=== PATIENT | female | born 1970 ===

== ENCOUNTER 2019-06-28 10:21 | Emergency (ER) | payer SELFPAY ==
[2019-06-28] MEDS ORDERED: Bupivacaine 0.25% 10 ML SDV INJECT ONE (10:43)
--- NOTE | 2019-06-28 11:20 | EDM.PDOC ---
ED HPI GENERAL MEDICAL PROBLEM - General Chief Complaint: ENT Problem Stated Complaint: DENTAL PAIN Time Seen by Provider: 06/28/19 10:40 Source of Information: Reports: Patient History Limitations: Reports: No Limitations - History of Present Illness INITIAL COMMENTS - FREE TEXT/NARRATIVE: Dental pain complaint. Developed when part of her back molar lower left side fell off the tooth recently. Now has 10/10 pain. Dentist is in [place] and does not offer coverage on weekends. No fevers/chills. Thought the area looked swollen a bit earlier. OTC meds not helping. No other changes/complaints. Left Lower Tooth/Teeth Pain Score (Numeric/FACES): 10 - Related Data Allergies Allergy/AdvReac Type Severity Reaction Status Date / Time No Known Allergies Allergy Verified 06/28/19 10:29 Home Meds: Home Meds Cephalexin [Keflex] 500 mg PO Q6H #1 capsule 06/28/19 [Rx] Losartan/Hydrochlorothiazide [Losartan-HCTZ 100-25 MG] 1 tab PO DAILY 06/28/19 [ History] Past Medical History Cardiovascular History: Reports: Hypertension Respiratory History: Reports: COPD (suspected based on smoking history) Psychiatric History: Reports: Other (See Below) (Patient reports heavy use of ETOH/6 drinks a day average per self report.) Social & Family History - Tobacco Use Smoking Status *Q: Current Every Day Smoker Packs/Tins Daily: 1.5 - Alcohol Use Alcohol Use History: Yes Days Per Week of Alcohol Use: 7 Number of Drinks Per Day: 6 Total Drinks Per Week: 42 - Recreational Drug Use Recreational Drug Use: No Drug Use in Last 12 Months: No ED ROS GENERAL - Review of Systems Review Of Systems: Comprehensive ROS is negative, except as noted in HPI. ED EXAM, GENERAL - Physical Exam Exam: See Below Exam Limited By: No Limitations General Appearance: Alert, WD/WN, No Apparent Distress Eye Exam: Bilateral Eye: EOMI, PERRL Ears: Normal External Exam Nose: No: Nasal Deformity, Nasal Swelling, Nasal Drainage Throat/Mouth: Normal Lips, Normal Voice, No Airway Compromise, Other (no obvious drainage from gums/swelling noted. Most posterior molar left lower jaw shows outer edge of tooth sheered off. This is the tender tooth. ) Head: Atraumatic, Normocephalic, Facial Tenderness (over left lower jaw). No: Facial Swelling Neck: Normal Inspection, Supple, Non-Tender, Full Range of Motion. No: Lymphadenopathy (L), Lymphadenopathy (R) Respiratory/Chest: No Respiratory Distress, Lungs Clear Extremities: Normal Range of Motion, Normal Capillary Refill Neurological: Alert, Oriented, Normal Cognition, Normal Gait, No Motor/Sensory Deficits Psychiatric: Normal Affect, Normal Mood Skin Exam: Warm, Dry, Intact, Normal Color Course - Vital Signs Last Recorded V/S: Last Vital Signs Temp 36.6 C 06/28/19 10:21 Pulse 98 06/28/19 10:21 Resp 16 06/28/19 10:21 BP 136/78 06/28/19 10:21 Pulse Ox 100 06/28/19 10:21 - Orders/Labs/Meds Meds: Medications Discontinued Medications Generic Name Dose Route Start Last Admin Trade Name Viviana PRN Reason Stop Dose Admin Bupivacaine HCl 10 ml 06/28/19 10:43 06/28/19 11:00 Sensorcaine-Mpf 0.25% INJECT 06/28/19 10:44 4.5 ml ONETIME ONE Administration Lidocaine HCl 5 ml 06/28/19 10:43 06/28/19 11:00 Xylocaine-Mpf 1% INJECT 06/28/19 10:44 0.5 ml ONETIME ONE Administration - Re-Assessments/Exams Free Text/Narrative Re-Assessment/Exam: Patient agreeable with having dental block performed. A mixture of 4.5ml Marcaine was mixed with 0.5ml Lidocaine. A total of 3ml of this solution was injected in two different areas. This was successful in greatly reducing patient's pain level from a 10 down to a 4. She was given Keflex to cover for potential infection in addition to 10 tabs of Tramadol for pain. To follow up with her primary dentist [facility] on Sunday to figure out a plan to deal with the damaged tooth. Patient agreeable with plan. Departure - Departure Time of Disposition: 11:12 Disposition: Home, Self-Care 01 Condition: Good Clinical Impression: Pain, dental - Discharge Information *PRESCRIPTION DRUG MONITORING PROGRAM REVIEWED*: Not Applicable *COPY OF PRESCRIPTION DRUG MONITORING REPORT IN PATIENT MAGALY: Not Applicable Prescriptions: Cephalexin [Keflex] 500 mg PO Q6H #1 capsule Referrals: Alexandra Shen [facility] [Primary Care Provider] - Forms: ED Department Discharge Additional Instructions: Follow up with your dentist as soon as possible. Follow up otherwise as needed.
== END 2019-06-28 11:33 | disposition home or self-care (01) ==
LOC: LL.ED 10:21
DX: K08.89 Other specified disorders of teeth and supporting structures (principal); F17.210 Nicotine dependence, cigarettes, uncomplicated; I10 Essential (primary) hypertension; J44.9 Chronic obstructive pulmonary disease, unspecified; Z79.899 Other long term (current) drug therapy
CPT/HCPCS: 64400; 99282-25; J2001; J3490

== ENCOUNTER 2022-04-01 21:11 | Emergency (ER) | payer SELFPAY | END 2022-04-01 22:00 | disposition home or self-care (01) | LOC: LL.ED 21:11 | DX: K08.89 Other specified disorders of teeth and supporting structures (principal); I10 Essential (primary) hypertension; Z79.899 Other long term (current) drug therapy | CPT/HCPCS: 99282; 99283 ==

== ENCOUNTER 2023-02-20 17:03 | Emergency (ER) | payer SELFPAY ==
[2023-02-20 17:32] LABS: BASOPHILS ABSOLUTE AUTO 0.02 K/uL (0.00-0.20); BASOPHILS PERCENT AUTO 0.6 % (0.0-2.0); EOSINOPHILS ABSOLUTE AUTO 0.12 K/uL (0.00-0.50); EOSINOPHILS PERCENT AUTO 3.9 % (0.0-5.0); HEMOGLOBIN 12.3 g/dL (11.7-15.5); LYMPHOCYTES ABSOLUTE AUTO 1.14 K/uL (0.50-3.50); LYMPHOCYTES PERCENT AUTO 36.7 % (10.0-50.0); MEAN CORPUSCULAR HEMOGLOBIN 32.4 pg (28.2-33.3); MEAN CORPUSCULAR HGB CONC 35.1 g/dL (31.7-36.0); MEAN CORPUSCULAR VOLUME 92.1 fL (84.0-98.0); MONOCYTES ABSOLUTE AUTO 0.37 K/uL (0.00-1.00); MONOCYTES PERCENT AUTO 11.9 % (2.0-14.0); NEUTROPHILS ABSOLUTE AUTO 1.46 K/uL (1.40-7.00); NEUTROPHILS PERCENT AUTO 46.9 % (45.0-80.0); PLATELET COUNT,PLT 269 K/uL (150-350); RED CELL DISTRIBUTION WIDTH 12.7 % (11.2-14.1); WHITE BLOOD CELL COUNT,WBC 3.1 K/uL (4.0-10.2)
[2023-02-20 17:35] LABS: APPEARANCE,URINE CLEAR; BILIRUBIN,URINE NEGATIVE (NEGATIVE); COLOR,URINE YELLOW; GLUCOSE,URINE NEGATIVE (NEGATIVE); KETONES,URINE NEGATIVE (NEGATIVE); LEUKOCYTE ESTERASE,URINE NEGATIVE (NEGATIVE); NITRITE,URINE NEGATIVE (NEGATIVE); OCCULT BLOOD,URINE MODERATE (NEGATIVE); PH,URINE 6.5 (5.0-9.0); PROTEIN,URINE NEGATIVE (NEGATIVE); UROBILINOGEN,URINE 0.2 E.U./dL (0.2-1.0)
[2023-02-20 17:37] LABS: BACTERIA,URINE NOT SEEN /HPF (NONE TO FEW); EPITHELIAL CELLS,URINE OCCASIONAL /LPF; MUCUS,URINE NOT SEEN /LPF (NEGATIVE); RBC,URINE 0-5 /HPF; WBC,URINE 0-5 /HPF
[2023-02-20 17:51] LABS: ALANINE AMINOTRANSFERASE,ALT 13 U/L (12-78); ALBUMIN 3.7 g/dL (3.4-5.0); ALKALINE PHOSPHATASE 43 IU/L (46-116); ANION GAP 14.4 meq/L (7-15); ASPARTATE AMNIOTRANSFERASE,AST 20 U/L (15-37); BILIRUBIN TOTAL 0.2 mg/dL (0.2-1.0); BLOOD UREA NITROGEN,BUN 12 mg/dL (7-18); CALCIUM 8.5 mg/dL (8.5-10.1); CARBON DIOXIDE,CO2 27.3 mmol/L (21.0-32.0); CHLORIDE,CL 97 mmol/L (98-107); CREATININE 0.81 mg/dL (0.51-1.17); ESTIMATED GFR 88 mL/min (>=60); GLUCOSE RANDOM 92 mg/dL (70-99); POTASSIUM,K 3.7 mmol/L (3.5-5.1); PROTEIN TOTAL,TP 6.7 g/dL (6.4-8.2); SODIUM,NA 135 mmol/L (136-145)
[2023-02-20] MEDS: Take Home: Nitrofurantoin Monohydrate/Macrocrystalline 100 MG, 6 Cap Pack PO ONE (18:22)
[2023-02-20] MEDS: Take Home: Phenazopyridine 95 MG Tab, 4 Tab Pack PO ONE (18:23)
[2023-02-22 15:52] LABS: C.TRACHOMATIS BY TMA Negative (Negative); N.GONORRHOEAE BY TMA Negative (Negative); SOURCE URINE
== END 2023-02-20 18:25 | disposition home or self-care (01) ==
LOC: LL.ED 17:03 → SUPCPDRO 17:03 → LL.ED 18:25
DX: R39.15 Urgency of urination (principal); F17.210 Nicotine dependence, cigarettes, uncomplicated; I10 Essential (primary) hypertension; J44.9 Chronic obstructive pulmonary disease, unspecified
CPT/HCPCS: 36415; 80053; 81001; 85025; 87491; 87591; 99283; 99284; A9270-GY

== ENCOUNTER 2024-11-13 21:38 | Emergency (ER) | payer SELFPAY ==
[2024-11-13 22:10] LABS: BASOPHILS ABSOLUTE AUTO 0.04 K/uL (0.00-0.20); EOSINOPHILS ABSOLUTE AUTO 0.21 K/uL (0.00-0.50); HEMATOCRIT 36.8 % (34.0-46.0); HEMOGLOBIN 13.2 g/dL (11.7-15.5); LYMPHOCYTES ABSOLUTE AUTO 1.75 K/uL (0.50-3.50); LYMPHOCYTES PERCENT AUTO 42.1 % (10.0-50.0); MEAN CORPUSCULAR HEMOGLOBIN 32.4 pg (28.2-33.3); MEAN CORPUSCULAR HGB CONC 35.9 g/dL (31.7-36.0); MEAN CORPUSCULAR VOLUME 90.4 fL (84.0-98.0); MONOCYTES ABSOLUTE AUTO 0.41 K/uL (0.00-1.00); MONOCYTES PERCENT AUTO 9.9 % (2.0-14.0); NEUTROPHILS ABSOLUTE AUTO 1.75 K/uL (1.40-7.00); PLATELET COUNT,PLT 222 K/uL (150-350); RED BLOOD CELL COUNT 4.07 M/uL (3.77-5.09); RED CELL DISTRIBUTION WIDTH 11.7 % (11.2-14.1); WHITE BLOOD CELL COUNT,WBC 4.2 K/uL (4.0-10.2)
[2024-11-13 22:32] LABS: ALANINE AMINOTRANSFERASE,ALT 24 U/L (12-78); ALBUMIN 4.2 g/dL (3.4-5.0); ALKALINE PHOSPHATASE 63 IU/L (46-116); ASPARTATE AMNIOTRANSFERASE,AST 28 U/L (15-37); BILIRUBIN TOTAL 0.3 mg/dL (0.2-1.0); BLOOD UREA NITROGEN,BUN 7 mg/dL (7-18); CALCIUM 8.7 mg/dL (8.5-10.1); CARBON DIOXIDE,CO2 29.1 mmol/L (21.0-32.0); CHLORIDE,CL 84 mmol/L (98-107); CREATININE 0.59 mg/dL (0.51-1.17); ETHANOL BLOOD MEDICAL 0.221 g/dL (0.000-0.080); GLUCOSE RANDOM 106 mg/dL (70-99); POTASSIUM,K 3.6 mmol/L (3.5-5.1); PROTEIN TOTAL,TP 7.7 g/dL (6.4-8.2)
[2024-11-13 22:34] LABS: ANION GAP 11.5 meq/L (7-15); ESTIMATED GFR 108 mL/min (>=60); SODIUM,NA 121 mmol/L (136-145)
[2024-11-13] MEDS ORDERED: LORazepam 1 MG Tab PO PRN (23:20)
[2024-11-13] MEDS: Sodium Chloride 3% 500 ML IV SCH (23:36)
[2024-11-13] MEDS: Sodium Chloride 0.9% 10 ML Syringe FLUSH PRN (23:41)
[2024-11-14 11:25] VITALS: BP 128/74; PULSE 81
== END 2024-11-14 12:30 | disposition home or self-care (01) ==
LOC: LL.ED 21:38
DX: T17.228A Food in pharynx causing other injury, initial encounter (principal); E87.1 Hypo-osmolality and hyponatremia; I10 Essential (primary) hypertension; J44.9 Chronic obstructive pulmonary disease, unspecified; F17.210 Nicotine dependence, cigarettes, uncomplicated; Z79.82 Long term (current) use of aspirin; Z79.899 Other long term (current) drug therapy; W44.8XXA Other foreign body entering into or through a natural orifice, initial encounter
CPT/HCPCS: 36415; 70360; 80053; 80307; 84295; 85025; 99283; J7131